=== PATIENT | male | born 1940 | race Caucasian/White ===

== ENCOUNTER → 2017-03-18 | Outpatient (CLI) | payer MEDICARE, MEDICAID ==
[~2017-03-18] MED LIST: BUPR150T3 PO; DEPA500T3 PO; DIAZ10 PO; HYDR10TA16 PO; SERT100 PO; TRAZ50TA78 PO; VYTO10TA35 PO
--- NOTE | 2017-03-20 11:16 | RSPPFT ---
DATE OF PROCEDURE: 03/18/17 COMMENTS: The forced vital capacity, FEV1, FEV1/FVC ratio are all normal. There is a small decrease in the FEF 25-75 which improves significantly after bronchodilator. The total lung capacity is normal with an increased residual volume and increased RV/TLC ratio. IMPRESSION: This is compatible with mild, partially reversible, small airways obstructive lung disease. The diffusion capacity is normal. Flow volume loop is normal.
== END ==
LOC: HRSP 10:51
PROVIDERS: ATTEND Internal Medicine
DX: J44.9 Chronic obstructive pulmonary disease, unspecified (principal)
CPT/HCPCS: 94060; 94726; 94729